=== PATIENT | male | born 1990 | race Caucasian/White ===

== ENCOUNTER 2021-02-22 00:45 | Emergency (ER) | payer OTHER ==
[2021-02-22] MEDS ORDERED: NA CHLORIDE 0.9% 1,000 ML ONE (03:06)
[2021-02-22 03:12] LABS: Absolute Lymphocytes (CBC) 1.1 K/uL (0.7-4.9); Basophils % 0.9 % (0-1.3); Hematocrit 40.1 % (39.6-49.0); MPV 9.4 fL (7.6-11.3)
[2021-02-22 03:12] LABS: Urine Blood Negative (Negative); Urine Glucose Negative (Negative); Urine Protein Negative (Negative); Urine Specific Gravity 1.015 (1.005-1.030); Urine pH 6.5 (5.0-7.0)
[2021-02-22 03:19] LABS: Protime INR 0.96
[2021-02-22 03:23] LABS: Barbiturates NEGATIVE (NEGATIVE); Benzodiazepines NEGATIVE (NEGATIVE); Cocaine NEGATIVE (NEGATIVE); METHAMPHETAM NEGATIVE (NEGATIVE); Methadone NEGATIVE (NEGATIVE); Opiates NEGATIVE (NEGATIVE); Phencyclidine NEGATIVE (NEGATIVE); THC Cannibis NEGATIVE (NEGATIVE)
[2021-02-22 03:38] LABS: ALT/SGPT 37 U/L (12-78); AST/SGOT 29 U/L (15-37); Albumin 3.5 g/dL (3.4-5.0); Alkaline Phosphatase 66 U/L (45-117); BUN Blood Urea Nitrogen 24 mg/dL (7-18); Bicarbonate 29 mmol/L (21-32); Bilirubin Direct 0.2 mg/dL (0-0.2); Bilirubin Total 0.5 mg/dL (0.2-1.0); Creatine Phosphokinase 221 U/L (39-308); Glucose Level 87 mg/dL (74-106); NT PRO-BNP 15 pg/mL (<125); Potassium 3.6 mmol/L (3.5-5.1); Protein, Total 7.8 g/dL (6.4-8.2); Sodium Level 141 mmol/L (136-145); Troponin (Emerg Dept Use Only) < 0.02 ng/mL (0.0-0.045)
--- NOTE | 2021-02-22 07:05 | EDPHYS ---
Physician Documentation [facility] Name: Christian Keene Age: 30 yrs Sex: Male : 1990 Arrival Date: 02/22/2021 Time: 00:48 Bed 5 Private MD: ED Physician Morteza Daniels HPI: 02/22 03:53 This 30 yrs old Male presents to ER via Ambulatory with complaints of Doesn't mh7 Feel Right. 03:53 The patient presents with a history of heart racing. Context: The symptoms occur at mh7 rest. Onset: The symptoms/episode began/occurred today. Duration: The patient or guardian reports a single episode, that is now resolved. Modifying factors: The symptoms are aggravated by nothing. The symptoms are alleviated by nothing. 03:53 Associated signs and symptoms: Pertinent positives: anxiety, chest pain, mh7 lightheadedness, near-syncope, numbness/tingling of hands, Pertinent negatives: cough, fever, nausea, SOB, syncope, unusual stressors, vertigo, vomiting. Severity of symptoms: At their worst the symptoms were moderate today, in the emergency department the symptoms have improved markedly. Historical: - Allergies: 01:16 No Known Allergies; rr5 - PMHx: 01:16 None; rr5 - PSHx: 01:16 None; rr5 - Immunization history:: Adult Immunizations up to date. - Social history:: Smoking status: Patient denies any tobacco usage or history of. ROS: 03:53 Constitutional: Negative for fever, chills, and weight loss, Eyes: Negative for injury, mh7 pain, redness, and discharge, ENT: Negative for injury, pain, and discharge, Neck: Negative for injury, pain, and swelling, Respiratory: Negative for shortness of breath, cough, wheezing, and pleuritic chest pain, Abdomen/GI: Negative for abdominal pain, nausea, vomiting, diarrhea, and constipation, Back: Negative for injury and pain, : Negative for injury, bleeding, discharge, and swelling, MS/Extremity: Negative for injury and deformity, Skin: Negative for injury, rash, and discoloration, Allergy/Immunology: Negative for hives, rash, and allergies, Endocrine: Negative for neck swelling, polydipsia, polyuria, polyphagia, and marked weight changes, Hematologic/Lymphatic: Negative for swollen nodes, abnormal bleeding, and unusual bruising. 03:53 Psych: Negative for depression, drug dependence, alcohol dependence, auditory hallucinations, visual hallucinations, homicidal ideation, insomnia, suicide gesture, suicidal ideation. Exam: 03:53 Head/Face: Normocephalic, atraumatic. Eyes: Pupils equal round and reactive to light, mh7 extra-ocular motions intact. Lids and lashes normal. Conjunctiva and sclera are non-icteric and not injected. Cornea within normal limits. Periorbital areas with no swelling, redness, or edema. Neck: Trachea midline, no thyromegaly or masses palpated, and no cervical lymphadenopathy. Supple, full range of motion without nuchal rigidity, or vertebral point tenderness. No Meningismus. Chest/axilla: Normal chest wall appearance and motion. Nontender with no deformity. No lesions are appreciated. Cardiovascular: Regular rate and rhythm with a normal S1 and S2. No gallops, murmurs, or rubs. Normal PMI, no JVD. No pulse deficits. Respiratory: Lungs have equal breath sounds bilaterally, clear to auscultation and percussion. No rales, rhonchi or wheezes noted. No increased work of breathing, no retractions or nasal flaring. Abdomen/GI: Soft, non-tender, with normal bowel sounds. No distension or tympany. No guarding or rebound. No evidence of tenderness throughout. Back: No spinal tenderness. No costovertebral tenderness. Full range of motion. Skin: Warm, dry with normal turgor. Normal color with no rashes, no lesions, and no evidence of cellulitis. MS/ Extremity: Pulses equal, no cyanosis. Neurovascular intact. Full, normal range of motion. Neuro: Awake and alert, GCS 15, oriented to person, place, time, and situation. Cranial nerves II-XII grossly intact. Motor strength 5/5 in all extremities. Sensory grossly intact. Cerebellar exam normal. Normal gait. Psych: Awake, alert, with orientation to person, place and time. Behavior, mood, and affect are within normal limits. 03:53 Constitutional: The patient appears in no acute distress, alert, awake, anxious. Vital Signs: 01:11 BP 126 / 107; Pulse 66; Resp 18; Temp 96.7(O); Pulse Ox 99% on R/A; Weight 81.65 kg; rr5 Height 5 ft. 10 in. (177.80 cm); Pain 0/10; 02:15 BP 99 / 69; Pulse 63; Resp 16; Pulse Ox 100% on R/A; jb4 02:44 BP 102 / 71; Pulse 57; Resp 16; Pulse Ox 99% on R/A; lp1 03:30 BP 107 / 73; Pulse 54; Resp 15; Pulse Ox 99% on R/A; jb4 04:30 BP 104 / 74; Pulse 60; Resp 18; Pulse Ox 97% on R/A; jb4 05:30 BP 116 / 67; Pulse 54; Resp 16; Pulse Ox 99% on R/A; jb4 06:30 BP 99 / 70; Pulse 54; Resp 16; Pulse Ox 98% on R/A; jb4 07:15 BP 99 / 65; Pulse 56; Resp 15; Pulse Ox 99% on R/A; hb 01:11 Body Mass Index 25.83 (81.65 kg, 177.80 cm) rr5 MDM: 07:02 Differential diagnosis: arrythmia, dehydration, stress disorder, Palpitations. Data [facility] reviewed: vital signs, nurses notes, lab test result(s), cardiac enzymes, CBC, drug level(s), alcohol, electrolytes, urinalysis, urine drug screen, EKG, radiologic studies, CT scan, plain films. Data interpreted: Pulse oximetry: on room air is 98 %. Interpretation: normal. Counseling: I had a detailed discussion with the patient and/or guardian regarding: the historical points, exam findings, and any diagnostic results supporting the discharge/admit diagnosis, lab results, radiology results, the need for outpatient follow up, to return to the emergency department if symptoms worsen or persist or if there are any questions or concerns that arise at home. Response to treatment: the patient's symptoms have resolved after treatment, the patient's blood pressure is in an acceptable range, mental status has returned to baseline, the patient no longer shows bradycardia, the patient is not short of breath, the patient is not tachycardic, the patient's pain is gone, the patient's temperature has normalized. 07:04 Patient medically screened. [facility] 02/22 02:29 Order name: Basic Metabolic Panel [facility] 02/22 02: Order name: CBC with Diff [facility] 02/22 02:29 Order name: LFT's [facility] 02/22 03:06 Order name: Basic Metabolic Panel; Complete Time: 03:52 EDMS 02/22 03:06 Order name: Liver (Hepatic) Function; Complete Time: 03:52 EDMS 02/22 03:06 Order name: Creatine Phosphokinase; Complete Time: 03:52 EDMS 02/22 03:06 Order name: Troponin (Emerg Dept Use Only); Complete Time: 03:52 EDMS 02/22 03:06 Order name: NT PRO-BNP; Complete Time: 03:52 EDMS 02/22 03:06 Order name: Magnesium; Complete Time: 03:52 EDMS 02/22 03:06 Order name: Thyroid Stimulating Hormone; Complete Time: 03:52 EDMS 02/22 03:06 Order name: CBC with Automated Diff; Complete Time: 03:52 EDMS 02/22 03:06 Order name: Protime (+INR); Complete Time: 03:52 EDMS 02/22 03:09 Order name: Urine Drug Screen; Complete Time: 03:52 EDMS 02/22 03:12 Order name: Urine Dipstick-Ancillary; Complete Time: 03:52 EDMS 02/22 05:22 Order name: Head Brain Wo Cont EDMS 02/22 05:22 Order name: Chest Single View EDMS 02/22 05:35 Order name: D-Dimer; Complete Time: 06:42 EDMS 02/22 02:29 Order name: EKG; Complete Time: 07:06 [facility] 02/22 02:29 Order name: Cardiac monitoring; Complete Time: 02:54 [facility] 02/22 02:29 Order name: EKG - Nurse/Tech; Complete Time: 02:54 [facility] 02/22 02:29 Order name: IV Saline Lock; Complete Time: 02:55 [facility] 02/22 02:29 Order name: Labs collected and sent; Complete Time: 02:55 [facility] 02/22 02:29 Order name: O2 Per Protocol; Complete Time: 02:55 [facility] 02/22 02:29 Order name: O2 Sat Monitoring; Complete Time: 02:55 [facility] 02/22 02:29 Order name: Urine Dipstick-Ancillary (obtain specimen); Complete Time: 03:05 [facility] Administered Medications: 02:50 Drug: NS 0.9% 1000 ml Route: IV; Rate: 1000 ml; Site: right forearm; jb4 Disposition: 02/22/21 07:04 Discharged to Home. Impression: Palpitations, Dizziness and giddiness. - Condition is Stable. - Discharge Instructions: Palpitations, Jopl-sn-Erbn, Dizziness, Kfmg-cy-Ixfy. - Medication Reconciliation Form, Thank You Letter, Antibiotic Education, Prescription Opioid Use form. - Follow up: Private Physician; When: 1 - 2 days; Reason: Worsening of condition, Recheck today's complaints, Continuance of care, Re-evaluation by your physician. Follow up: Jonathan Westbrook MD; When: 1 - 2 days; Reason: Worsening of condition, Recheck today's complaints. - Problem is new. - Symptoms have improved. Signatures: Dispatcher [employer] EDMS Nanette Graham, RN RN Alejandro Valdez RN RN jb4 Jesus Almodovar RN RN rr5 Morteza Daniels MD MD mh7 Corrections: (The following items were deleted from the chart) 07:10 07:06 Chest Single View+RAD.RAD.BRZ ordered. EDLA EDMS 07:12 07:06 Head Brain Wo Cont+CT.RAD.BRZ ordered. EDLA EDMS 07:38 07:04 02/22/2021 07:04 Discharged to Home. Impression: Palpitations; Dizziness and hb giddiness. Condition is Stable. Forms are Medication Reconciliation Form, Thank You Letter, Antibiotic Education, Prescription Opioid Use. Follow up: Private Physician; When: 1 - 2 days; Reason: Worsening of condition, Recheck today's complaints, Continuance of care, Re-evaluation by your physician. Follow up: Jonathan Westbrook; When: 1 - 2 days; Reason: Worsening of condition, Recheck today's complaints. Problem is new. Symptoms have improved. mh7
--- NOTE | 2021-02-22 07:05 | ER ---
Nurse's Notes [facility] Name: Christian Keene Age: 30 yrs Sex: Male : 1990 Arrival Date: 02/22/2021 Time: 00:48 Bed 5 Private MD: Diagnosis: Palpitations;Dizziness and giddiness Presentation: 02/22 01:11 Chief complaint: Patient states: was at home while in bed and woke up felt like things rr5 were "fading out" denies passing out, any drug use or ETOH, felt palpitations and had numbness in arms and feet. Coronavirus screen: Client denies travel out of the [place] in the last 14 days. Ebola Screen: Patient negative for fever greater than or equal to 101.5 degrees Fahrenheit, and additional compatible Ebola Virus Disease symptoms Patient denies exposure to infectious person. Patient denies travel to an Ebola-affected area in the 21 days before illness onset. No symptoms or risks identified at this time. Initial Sepsis Screen: Does the patient meet any 2 criteria? No. Patient's initial sepsis screen is negative. Does the patient have a suspected source of infection? No. Patient's initial sepsis screen is negative. Risk Assessment: Do you want to hurt yourself or someone else? Patient reports no desire to harm self or others. Onset of symptoms was February 22, 2021. 01:11 Method Of Arrival: Ambulatory rr5 01:11 Acuity: DAVY 3 rr5 Historical: - Allergies: 01:16 No Known Allergies; rr5 - PMHx: 01:16 None; rr5 - PSHx: 01:16 None; rr5 - Immunization history:: Adult Immunizations up to date. - Social history:: Smoking status: Patient denies any tobacco usage or history of. Screenin:20 Abuse screen: Denies threats or abuse. Nutritional screening: No deficits noted. jb4 Tuberculosis screening: No symptoms or risk factors identified. Fall Risk None identified. Assessment: :20 General: Appears in no apparent distress. comfortable, Behavior is calm, cooperative, jb4 appropriate for age. Pain: Denies pain. Neuro: Level of Consciousness is awake, alert, obeys commands, Oriented to person, place, time, situation. Cardiovascular: Patient's skin is warm and dry. Respiratory: Airway is patent Respiratory effort is even, unlabored, Respiratory pattern is regular, symmetrical. GI: No signs and/or symptoms were reported involving the gastrointestinal system. : No signs and/or symptoms were reported regarding the genitourinary system. EENT: No signs and/or symptoms were reported regarding the EENT system. Derm: Skin is intact, Skin is pink, warm \\T\\ dry. Musculoskeletal: Circulation, motion, and sensation intact. Range of motion: intact in all extremities. 02:20 Reassessment: Patient appears in no apparent distress at this time. Patient and/or jb4 family updated on plan of care and expected duration. Pain level reassessed. Patient is alert, oriented x 3, equal unlabored respirations, skin warm/dry/pink. 03:30 Reassessment: Patient appears in no apparent distress at this time. Patient and/or jb4 family updated on plan of care and expected duration. Pain level reassessed. Patient is alert, oriented x 3, equal unlabored respirations, skin warm/dry/pink. 04:30 Reassessment: Patient appears in no apparent distress at this time. No changes from jb4 previously documented assessment. Patient and/or family updated on plan of care and expected duration. Pain level reassessed. 05:30 Reassessment: Patient appears in no apparent distress at this time. Patient and/or jb4 family updated on plan of care and expected duration. Pain level reassessed. Patient is alert, oriented x 3, equal unlabored respirations, skin warm/dry/pink. 06:30 Reassessment: Patient appears in no apparent distress at this time. Patient and/or jb4 family updated on plan of care and expected duration. Pain level reassessed. Pt is resting in bed with eyes closed, respirations are even and unlabored. 07:15 Reassessment: Patient appears in no apparent distress at this time. Patient and/or hb family updated on plan of care and expected duration. Pain level reassessed. Patient is alert, oriented x 3, equal unlabored respirations, skin warm/dry/pink. Vital Signs: 01:11 BP 126 / 107; Pulse 66; Resp 18; Temp 96.7(O); Pulse Ox 99% on R/A; Weight 81.65 kg; rr5 Height 5 ft. 10 in. (177.80 cm); Pain 0/10; 02:15 BP 99 / 69; Pulse 63; Resp 16; Pulse Ox 100% on R/A; jb4 02:44 BP 102 / 71; Pulse 57; Resp 16; Pulse Ox 99% on R/A; lp1 03:30 BP 107 / 73; Pulse 54; Resp 15; Pulse Ox 99% on R/A; jb4 04:30 BP 104 / 74; Pulse 60; Resp 18; Pulse Ox 97% on R/A; jb4 05:30 BP 116 / 67; Pulse 54; Resp 16; Pulse Ox 99% on R/A; jb4 06:30 BP 99 / 70; Pulse 54; Resp 16; Pulse Ox 98% on R/A; jb4 07:15 BP 99 / 65; Pulse 56; Resp 15; Pulse Ox 99% on R/A; hb 01:11 Body Mass Index 25.83 (81.65 kg, 177.80 cm) rr5 ED Course: 00:48 Patient arrived in ED. am4 01:16 Triage completed. rr5 01:16 Arm band placed on. rr5 01:17 Morteza Daniels MD is Attending Physician. mh7 02:19 Alejandro Valdez, FRANCHESKA is Primary Nurse. jb4 02:50 Initial lab(s) drawn, by mi, sent to lab. Inserted saline lock: 18 gauge in right jb4 forearm, using aseptic technique. Blood collected. 05:46 Head Brain Wo Cont In Process Unspecified. EDMS 05:47 Chest Single View In Process Unspecified. EDMS 07:04 Jonathan Westbrook MD is Referral Physician. mh7 07:15 Patient has correct armband on for positive identification. hb 07:38 No provider procedures requiring assistance completed. IV discontinued, intact, hb bleeding controlled, No redness/swelling at site. Administered Medications: 02:50 Drug: NS 0.9% 1000 ml Route: IV; Rate: 1000 ml; Site: right forearm; jb4 Outcome: 07:04 Discharge ordered by . mh7 07:38 Discharged to home ambulatory, with family. hb 07:38 Condition: stable 07:38 Discharge instructions given to patient, Instructed on discharge instructions, follow up and referral plans. medication usage, Demonstrated understanding of instructions, follow-up care, medications. 07:38 Patient left the ED. hb Signatures: Dispatcher [employer] EDMS Bisi Austin RN RN lp1 Nanette Graham RN RN Alejandro Valdez RN RN jb4 Jesus Almodovar RN RN rr5 Morteza Daniels MD MD 7 Teetee Mckay am4 Corrections: (The following items were deleted from the chart) 06:38 06:30 Reassessment: Patient appears in no apparent distress at this time. Patient jb4 and/or family updated on plan of care and expected duration. Pain level reassessed. Patient is alert, oriented x 3, equal unlabored respirations, skin warm/dry/pink. jb4 06:38 06:30 BP 99 / 70; Pulse 18bpm; Resp 16bpm; Pulse Ox 98% RA; jb4 jb4
[2021-02-22 07:55] VITALS: BP 99/65; O2SAT 99
[2021-02-22 08:09] VITALS: TEMP 98.4
--- NOTE | 2021-02-22 08:59 | RAD REPORT ---
EXAM DESCRIPTION: RAD - Chest Single View - 02/22/2021 5:47 am CLINICAL HISTORY: NUMBNESS TO HANDS/FEET, shortness of breath COMPARISON: December 2012 TECHNIQUE: AP portable chest image was obtained 02/22/2021 5:47 am . FINDINGS: Lungs are clear. Heart and vasculature are normal. No measurable pleural effusion and no p neumothorax. No acute bony abnormality seen. No acute aortic findings suspected. IMPRESSION: No acute cardiopulmonary process. No significant change from comparison study.
--- NOTE | 2021-02-23 08:25 | EKG ---
Test Date: 2021-02-22 Test Time: 02:51:30 Channeling Machine Runner: STEPH MEASUREMENT RESULTS: Intervals: Rate: 56 CT: 180 QRSD: 90 QT: 414 QTc: 399 [place]: P: 49 CT: 180 QRS: 79 T: 51 INTERPRETIVE STATEMENTS: Sinus bradycardia Early repolarization Otherwise normal ECG No previous ECG available for comparison Electronically Signed On 02-23-21 08:23:58 CDT by Jonathan Westbrook
--- NOTE | 2021-02-23 10:11 | RAD REPORT ---
EXAM DESCRIPTION: CT - Head Brain Wo Cont - 02/22/2021 6:40 am CLINICAL HISTORY: The patient is 30 years old and is Male; NEAR SYNCOPE / NUMBNESS TO HANDS AND FEET TECHNIQUE: Axial computed tomography images of the head/brain without intravenous contrast. Sagitt al and coronal reformatted images were created and reviewed. This CT exam was performed using one o r more of the following dose reduction techniques: automated exposure control, adjustment of the mA and/or kV according to patient size, and/or use of iterative reconstruction technique. COMPARISON: No relevant prior studies available. FINDINGS: Brain: Unremarkable. No hemorrhage. No significant white matter disease. No edema. Ventricles: Unremarkable. No ventriculomegaly. Bones/joints: Unremarkable. No acute fracture. Soft tissues: Unremarkable. Sinuses: Unremarkable as visualized. Mastoid air cells: Unremarkable as visualized. No mastoid effusion. IMPRESSION: No acute intracranial abnormality. Electronically signed by: Leonard Jacinto MD 02/22/2021 6:06 AM CDT Due to temporary technical issues with the PACS/Fluency reporting system, reports are being signed by the in house radiologists without review as a courtesy to insure prompt reporting. The interpreting radiologist is fully responsible for the content of the report.
== END 2021-02-22 07:38 | disposition home or self-care (01) ==
LOC: ER 00:45
DX: R00.2 Palpitations (principal)
CPT/HCPCS: 93005; 85025; 80048; 36415; 83735; 82550; 85610; 85379; 80076; 80307 ×8; 84443; 81003; 84484; 83880; 70450; 71045; J7030

== ENCOUNTER 2021-11-25 11:34 | Emergency (ER) | payer BC ==
--- OUTSIDE RECORDS SUMMARY | 2021-11-25 11:36 | XMS REPORT | Continuity of Care Document ---
:1990 Author Organization [facility] t Address [address] [place] [address] Care Team Providers Name Role Phone ARMANDO Attending Clinician Unavailable FRANCK Attending Clinician Unavailable Payers Payer Name Policy Type Policy Number Effective Date Expiration Date S oursolomon [employer] Medicare P [id number] Advantage PPO-HMO Problems This patient has no known problems. Allergies, Adverse Reactions, Alerts This patient has no known allergies or adverse reactions. Medications This patient has no known medications. Procedures This patient has no known procedures. Encounters Start End Encounter Admission Attending Care Care Encounter Source Date/Time Date/Time Type Type Clinicians Facility Department ID 2021-06-21 Outpatient [facility] [id number] [facility] 14:28:13 [id number] [facility] 2021-11-24 2021-11-24 Emergency E ARMANDO MHJAYDA [facility] [id number] MHJAYDA 18:11:00 21:34:00 TJ 2020-01-26 2020-01-26 Emergency E OTIS JUÁREZ [facility] [id number] MHDINH 13:55:00 15:06:00 STEVE Results This patient has no known results.
[2021-11-25] MEDS ORDERED: KETOROLAC 30 MG/ML INJ ONE (13:13)
[2021-11-25 14:06] LABS: Absolute Lymphocytes (CBC) 0.9 K/uL (0.7-4.9); Hematocrit 38.7 % (39.6-49.0); Lymphocytes % 13.2 % (15.3-44.8); MPV 7.9 fL (7.6-11.3); RBC Red Blood Cell Count 4.22 M/uL (4.33-5.43)
[2021-11-25 14:12] LABS: ALT/SGPT 70 U/L (12-78); AST/SGOT 35 U/L (15-37); Albumin 2.5 g/dL (3.4-5.0); Alkaline Phosphatase 355 U/L (45-117); BUN Blood Urea Nitrogen 11 mg/dL (7-18); Bicarbonate 31 mmol/L (21-32); Bilirubin Total 0.2 mg/dL (0.2-1.0); Glucose Level 117 mg/dL (74-106); Potassium 4.4 mmol/L (3.5-5.1); Sodium Level 139 mmol/L (136-145)
[2021-11-25] MEDS ORDERED: CLINDAMYCIN 900MG/D5W 900 MG/50 ML IVPB IV ONE (15:09)
[2021-11-25] MEDS ORDERED: NA CHLORIDE 0.9% 100 ML ONE (16:13)
[2021-11-25] MEDS ORDERED: CEFTRIAXONE 1000 MG/VIAL ONE (16:13)
--- NOTE | 2021-11-25 17:32 | EDPHYS ---
Physician Documentation [facility] Name: Christian Keene Age: 31 yrs Sex: Male : 1990 Arrival Date: 11/25/2021 Time: 11:36 Bed 19 Private MD: ED Physician Jatinder Sanchez HPI: 11/25 12:49 This 31 yrs old Male presents to ER via Ambulatory with complaints of Headache. jmm 12:49 The patient presents with sore throat. The patient describes throat pain as raw. Onset: jmm The symptoms/episode began/occurred gradually, 1 month(s) ago. Modifying factors: The symptoms are alleviated by nothing, the symptoms are aggravated by nothing. Associated signs and symptoms: Pertinent positives: chills. Is a 31-year-old male with history of HIV the presents emerged part with complaints of progressively worsening sore throat and swelling to the right side of his neck beginning approximately a month ago. Patient recently finished a course of azithromycin with no relief of symptoms. Patient states over the past week is developed a rash to his chest and right arm.. Historical: - Allergies: 11:51 No Known Allergies; ab2 - PMHx: 11:51 HIV positive; ab2 - PSHx: 11:51 None; ab2 - Immunization history:: Adult Immunizations up to date. - Social history:: Smoking status: Patient denies any tobacco usage or history of. ROS: 12:49 Cardiovascular: Negative for chest pain, palpitations, and edema, Respiratory: Negative jmm for shortness of breath, cough, wheezing, and pleuritic chest pain. 12:49 Constitutional: Positive for body aches, chills. 12:49 ENT: Positive for sore throat. 12:49 All other systems are negative. Exam: 12:49 Head/Face: atraumatic. Eyes: EOMI, no conjunctival erythema appreciated jmm 12:49 Neck: Trachea midline, Supple Chest/axilla: Normal chest wall appearance and motion. Cardiovascular: Regular rate and rhythm. No edema appreciated Respiratory: Normal respirations, no respiratory distress appreciated Abdomen/GI: Non distended, soft Back: Normal ROM 12:49 Constitutional: The patient appears in no acute distress, alert, awake. 12:49 ENT: Posterior pharynx: erythema, that is moderate, exudate, that is moderate. 12:49 Skin: Diffuse papular rash noted to the chest noted to the right arm. 12:49 Neuro: Orientation: is normal, Mentation: is normal, Memory: is normal. 12:49 Psych: Behavior/mood is pleasant, cooperative. Vital Signs: 11:46 BP 116 / 81; Pulse 99; Resp 16; Temp 99.0(TE); Pulse Ox 99% on R/A; Weight 74.84 kg; ab2 Height 5 ft. 9 in. (175.26 cm); Pain 8/10; 17:29 BP 102 / 5; Pulse 81; Resp 16; Pulse Ox 99% on R/A; lr4 11:46 Body Mass Index 24.37 (74.84 kg, 175.26 cm) ab2 MDM: 12:49 Patient medically screened. li 17:30 Data reviewed: vital signs, nurses notes. Counseling: I had a detailed discussion with li the patient and/or guardian regarding: the historical points, exam findings, and any diagnostic results supporting the discharge/admit diagnosis, lab results, the need for outpatient follow up, to return to the emergency department if symptoms worsen or persist or if there are any questions or concerns that arise at home. ED course: Patient given IV Rocephin to treat for possible gonorrhea infection. Patient does admit to oral sex prior to developing his symptoms. Patient states that he does take antivirals with the normal CD4 count as follows his infectious disease doctor tells him. Patient is nontoxic in appearance. Patient given also IV dose of clindamycin and will be advised follow with ENT for further evaluation. Patient understood agrees plan of care. 11/25 12:50 Order name: CBC with Diff; Complete Time: 14:57 [facility] 11/25 12:50 Order name: CMP; Complete Time: 14:57 [facility] 11/25 12:50 Order name: Strep; Complete Time: 14:57 [facility] 11/25 12:51 Order name: Rpr [facility] 11/25 12:51 Order name: [place] Screen Profile [facility] 11/25 12:56 Order name: GC (GONORR/CHLAMYDIA) Probe [facility] 11/25 12:50 Order name: Saline Lock; Complete Time: 13:46 [facility] 11/25 12:57 Order name: Procalcitonin; Complete Time: 14:57 [facility] 11/25 12:57 Order name: Lactate; Complete Time: 14:57 [facility] 11/25 12:57 Order name: Blood Culture Adult (2) [facility] 11/25 14:18 Order name: Throat Culture EDMS Administered Medications: 15:15 Drug: Clindamycin 900 mg Route: IVPB; Infused Over: 30 mins; Site: right antecubital; lr4 15:46 Follow up: IV Status: Completed infusion; IV Intake: 50ml lr4 16:13 Follow up: IV Status: Completed infusion lr4 16:13 Drug: Rocephin (cefTRIAXone) 1 grams Route: IV; Rate: calculated rate; Site: right lr4 antecubital; 16:15 Follow up: IV Status: Completed infusion; IV Intake: 10ml lr4 Disposition: 18:46 Co-signature as Attending Physician, Jatinder Sanchez MD. rn Disposition Summary: 11/25/21 17:32 Discharge Ordered Location: Home [facility] Condition: Stable [facility] Diagnosis - Acute pharyngitis, unspecified [facility] Followup: [facility] - With: Joselyn Delarosa MD - When: 2 - 3 days - Reason: Recheck today's complaints, Continuance of care, Re-evaluation by your physician Discharge Instructions: - Discharge Summary Sheet [facility] - Pharyngitis [facility] Forms: - Medication Reconciliation Form [facility] - Thank You Letter [facility] - Antibiotic Education [facility] - Prescription Opioid Use [facility] Prescriptions: - Clindamycin HCl 300 mg Oral Capsule - take 1 capsule by ORAL route every 6 hours for 10 days; 40 capsule; Refills: 0, [facility] Product Selection Permitted - Diclofenac Sodium 75 mg Oral Tablet Sustained Release - take 1 tablet by ORAL route 2 times per day; 30 tablet; Refills: 0, Product [facility] Selection Permitted Signatures: Dispatcher [employer] EDMS Alek Ball PA PA jmm Nieto, Roman, MD MD rn Bleininger, Alexis ab2 Rogers, Lashaunda RN RN lr4
--- NOTE | 2021-11-25 17:32 | ER ---
Nurse's Notes [facility] Name: Christian Keene Age: 31 yrs Sex: Male : 1990 Arrival Date: 11/25/2021 Time: 11:36 Bed 19 Private MD: Diagnosis: Acute pharyngitis, unspecified Presentation: 11/25 11:46 Chief complaint: Patient states: "My right ear and jaw are swollen for about a month. ab2 But now I have a sore throat and bumps all over my body. I have a crazy headache and my hearing is decreasing in that right ear.". Coronavirus screen: Vaccine status: Patient reports being unvaccinated. Client denies travel out of the [place] in the last 14 days. At this time, the client does not indicate any symptoms associated with coronavirus-19. Ebola Screen: Patient negative for fever greater than or equal to 101.5 degrees Fahrenheit, and additional compatible Ebola Virus Disease symptoms Patient denies exposure to infectious person. Patient denies travel to an Ebola-affected area in the 21 days before illness onset. No symptoms or risks identified at this time. Initial Sepsis Screen: Does the patient meet any 2 criteria? No. Patient's initial sepsis screen is negative. Does the patient have a suspected source of infection? No. Patient's initial sepsis screen is negative. Risk Assessment: Do you want to hurt yourself or someone else? Patient reports no desire to harm self or others. Onset of symptoms is unknown. 11:46 Method Of Arrival: Ambulatory ab2 11:46 Acuity: DAVY 4 ab2 Triage Assessment: 11:50 Headache History: Denies prior headaches. General: Appears in no apparent distress. ab2 uncomfortable, Behavior is calm, cooperative, appropriate for age. Pain: Complains of pain in head Pain currently is 8 out of 10 on a pain scale. Pain began a week or so Also complains of no other associated symptoms. EENT: Reports decreased hearing in right ear. Neuro: Level of Consciousness is awake, alert, obeys commands, Oriented to person, place, time, situation, Appropriate for age Director Professional Services are equal bilaterally Moves all extremities. Reports headache. Historical: - Allergies: 11:51 No Known Allergies; ab2 - PMHx: 11:51 HIV positive; ab2 - PSHx: 11:51 None; ab2 - Immunization history:: Adult Immunizations up to date. - Social history:: Smoking status: Patient denies any tobacco usage or history of. Screenin:53 Abuse screen: Denies threats or abuse. Nutritional screening: No deficits noted. lr4 Tuberculosis screening: No symptoms or risk factors identified. Fall Risk None identified. Assessment: 12:50 General: Appears in no apparent distress. comfortable, Behavior is calm, cooperative. lr4 Pain: Complains of pain in head and right ear Pain radiates to neck Pain currently is 7 out of 10 on a pain scale. Quality of pain is described as aching, throbbing, Pain began gradually, 2 wks ago. Neuro: No deficits noted. Cardiovascular: No deficits noted. Respiratory: No deficits noted. Derm: Rash noted that is red, on generalized Reports. 17:29 Reassessment: Patient is alert, oriented x 3, equal unlabored respirations, skin lr4 warm/dry/pink. Patient states feeling better. Patient states symptoms have improved. Vital Signs: 11:46 BP 116 / 81; Pulse 99; Resp 16; Temp 99.0(TE); Pulse Ox 99% on R/A; Weight 74.84 kg; ab2 Height 5 ft. 9 in. (175.26 cm); Pain 8/10; 17:29 BP 102 / 5; Pulse 81; Resp 16; Pulse Ox 99% on R/A; lr4 11:46 Body Mass Index 24.37 (74.84 kg, 175.26 cm) ab2 ED Course: 11:36 Patient arrived in ED. kz 11:50 Triage completed. ab2 11:51 Arm band placed on right wrist. ab2 12:28 Alek Ball PA is PHCP. jmm 12:28 Jatinder Sanchez MD is Attending Physician. jmm 12:50 Krista Bello RN is Primary Nurse. lr4 12:53 No provider procedures requiring assistance completed. lr4 12:54 Patient has correct armband on for positive identification. Bed in low position. Call lr4 light in reach. 13:15 Inserted saline lock: 18 gauge in left forearm, using aseptic technique. lr4 17:31 Joselyn Delarosa MD is Referral Physician. jmm 17:39 IV discontinued, intact, bleeding controlled, No redness/swelling at site. Pressure lr4 dressing applied. Administered Medications: 15:15 Drug: Clindamycin 900 mg Route: IVPB; Infused Over: 30 mins; Site: right antecubital; lr4 15:46 Follow up: IV Status: Completed infusion; IV Intake: 50ml lr4 16:13 Follow up: IV Status: Completed infusion lr4 16:13 Drug: Rocephin (cefTRIAXone) 1 grams Route: IV; Rate: calculated rate; Site: right lr4 antecubital; 16:15 Follow up: IV Status: Completed infusion; IV Intake: 10ml lr4 Intake: 15:46 IV: 50ml; Total: 50ml. lr4 16:15 IV: 10ml; Total: 60ml. lr4 Outcome: 12:54 Condition: stable lr4 17:32 Discharge ordered by . li 17:38 Patient left the ED. lr4 17:38 Discharged to home ambulatory. lr4 17:38 Discharge instructions given to patient. Signatures: Alek Ball PA PA jmm Bleininger, Alexis ab2 Rogers, Lashaunda, RN RN lr4 Luana Nolan
[2021-11-25 17:51] VITALS: TEMP 99; O2SAT 99
[2021-11-25 17:52] VITALS: BP 102/5
[2021-11-26 01:16] LABS: RPR (Rapid Plasma Reagin) REACTIVE (NON-REACT)
== END 2021-11-25 17:38 | disposition home or self-care (01) ==
LOC: ER 11:34
DX: J02.9 Acute pharyngitis, unspecified (principal); R21 Rash and other nonspecific skin eruption; R51.9 Headache, unspecified; R68.83 Chills (without fever); R22.1 Localized swelling, mass and lump, neck; Z21 Asymptomatic human immunodeficiency virus [HIV] infection status
CPT/HCPCS: 36415; 80053; 83605; 84145; 85025; 86308; 86592; 86593; 86780; 87040; 87070; 87081; 87490; 87590; 96365; 96375; 99283